=== PATIENT | female | born 1945 | race Caucasian/White ===

== ENCOUNTER 2017-01-25 05:31 | Observation (INO) | payer BC ==
[2017-01-17 12:26] VITALS: BMI 35.0
--- NOTE | 2017-01-17 13:02 | PAT Medication Instructions ---
Service Date Jan 17, 2017. Current Home Medication List Ascorbic Acid (Vitamin C), 60 MG PO QAM Aspirin (Aspirin Chewable), 81 MG PO QAM Calcium (Calcium) Calcium Carbonate (Calcium), 750 MG PO QAM Cholecalciferol (Vitamin D3), 1 CAP PO QAM Diclofenac (Voltaren), 75 MG PO TID Ciunjxtdpiz-Mgxtxcnpgpt-Rvv C- (Glucosamine Chondroitin), 1 TAB PO QAM Glyburide (Micronase), 2.5 MG PO HS Glyburide (Glyburide), 2.5 MG PO UD PRN for PRN Metformin Hcl (Glucophage), 500 MG PO BID Vitamin B Cmplx/Vitc/Folic Ac (Nephrocaps), 1 CAP PO QAM Vitamin E (Vitamin E), 1 TAB PO QAM Medication Instructions For Your Scheduled Surgery - Held per surgeon's instructions: Aspirin (Aspirin Chewable), 81 MG PO QAM - Hold the following medications as of 01/17/17: Xohxsvtdaqx-Zitbblaexsy-Ttq C- (Glucosamine Chondroitin), 1 TAB PO QAM Vitamin E (Vitamin E), 1 TAB PO QAM - Hold the following medications 48 hours prior to surgery: Metformin Hcl (Glucophage), 500 MG PO BID - Hold the following medications the morning of surgery: Glyburide (Glyburide), 2.5 MG PO UD PRN for PRN Ascorbic Acid (Vitamin C), 60 MG PO QAM Calcium Carbonate (Calcium), 750 MG PO QAM Cholecalciferol (Vitamin D3), 1 CAP PO QAM Diclofenac (Voltaren), 75 MG PO TID (otherwise okay to continue per surgeon) Vitamin B Cmplx/Vitc/Folic Ac (Nephrocaps), 1 CAP PO QAM Calcium (Calcium) - Take the following medications as scheduled the night before surgery: Glyburide (Micronase), 2.5 MG PO HS Nothing to eat or drink after midnight If you have any questions please call us at [phone] or [phone] or [phone]
[2017-01-17 13:11] LABS: BUN/CREATININE RATIO 20.8 (10-20); CALCIUM 9.3 mg/dl (8.5-10.1); CREATININE 0.85 mg/dl (0.60-1.20); POTASSIUM 3.7 mmol/L (3.5-5.1)
[2017-01-17 13:53] LABS: BASO % 0.9 %; BASO ABS # 0.06 K/uL (0-0.2); COMPLETE YES; EOS % 4.7 %; HEMATOCRIT 39.5 % (37-47); IG% 0.2 %; LYMPH % 32.2 %; LYMPH ABS # 2.11 K/uL (1.2-3.4); MEAN CELL VOLUME 86.6 fL (80-100); MEAN CORPUSCULAR HEMOGLOBIN 28.7 pg (25-34); MEAN CORPUSCULAR HGB CONC 33.2 g/dl (32-36); MEAN PLATELET VOLUME 10.7 fL (7.4-10.4); MONO % 4.4 %; NEUT % 57.6 %; PLATELET COUNT 202 K/uL (130-400); RED BLOOD COUNT 4.56 M/uL (4.2-5.4); WHITE BLOOD COUNT 6.56 K/uL (4.8-10.8)
[2017-01-25] VITALS (9 sets, daily range): BP systolic 131–165; BP diastolic 75–82; PULSE 60–77; TEMP 36.4–37.1; O2SAT 92–99; Ht 167.6 cm; Wt 97.7 kg
[~2017-01-25] VITALS: Ht 167.6 cm; Wt 97.7 kg
[~2017-01-25 05:31] MED LIST: ASCO100T PO; ASPCH81X PO; B-CO1CAP17 PO; CALC-393 PO; CALC600T37; CHOL2000 PO; DICL-201 PO; GLUC1CAP35 PO; GLYB5TAB8 PO; MCR5 PO; METF500T PO; VITA1TAB4 PO
[2017-01-25] MEDS ORDERED: CEFAZOLIN 2000 MG/60 ML D5W IV SCH (06:00)
[2017-01-25] MEDS ORDERED: ENOXAPARIN 40 MG/0.4 ML SYR SQ SCH (06:00)
[2017-01-25] MEDS ORDERED: LACTATED RINGER'S 1000ML 1,000 ML IV SCH (06:00)
[2017-01-25] MEDS ORDERED: CLINDAMYCIN 600 MG/54 ML D5W IV ONE ×2 (06:45→11:56)
[2017-01-25] MEDS ORDERED: NURSING VERBAL MED ORDER ONE (06:45)
[2017-01-25] MEDS ORDERED: LIDOCAINE/EPINEPHRINE 1% 20 ML VIAL ONE (06:58)
[2017-01-25] MEDS ORDERED: BUPIVACAINE 0.25% 30 ML VIAL ONE (06:59)
--- NOTE | 2017-01-25 07:00 | History & Physical Bridge Note ---
H&P Re-Evaluation Bridge Note: I have examined the patient, reviewed the History & Physical and in the interval since the performance of the History & Physical I have noted the following changes of clinical significance: No changes noted
[2017-01-25] MEDS ORDERED: PROPOFOL IV EMULSION 10 MG/ML 20 ML VIAL IV ONE (07:04)
[2017-01-25] MEDS ORDERED: MIDAZOLAM HCL 1 MG/ML 2ML VIAL ONE (07:04)
[2017-01-25] MEDS ORDERED: LIDOCAINE HCL 2% 2 ML VIAL (20MG/ML) ONE (07:04)
[2017-01-25] MEDS ORDERED: FENTANYL CITRATE INJ 50 MCG/1 ML 2 ML VIAL ONE ×2 (07:04→07:44)
[2017-01-25] MEDS ORDERED: ROCURONIUM BROMIDE 10 MG/ML 5 ML VIAL IV ONE (07:04)
[2017-01-25] MEDS ORDERED: HYDROmorphone INJ 2 MG/ML SYR/VIAL ONE (08:19)
[2017-01-25] MEDS ORDERED: FLUCONAZOLE 200MG / NSS IV ONE (08:30)
[2017-01-25] MEDS ORDERED: ACETAMINOPHEN 1000 MG/100 ML IV IV ONE (09:47)
[2017-01-25] MEDS ORDERED: NEOSTIGMINE METHYLSULFATE 5 MG/5 ML SYR ONE (09:55)
[2017-01-25] MEDS ORDERED: EpHEDrine SULFATE 50MG/5ML SYR ONE (09:55)
[2017-01-25] MEDS ORDERED: ONDANSETRON INJ 2 MG/ML 2 ML VIAL ONE ×2 (09:55)
[2017-01-25] MEDS ORDERED: GLYCOPYRROLATE INJ 0.2 MG/ML VIAL ONE (09:55)
[2017-01-25] MEDS ORDERED: DEXAMETHASONE SOD INJ 4 MG/ML VIAL ONE (09:55)
--- NOTE | 2017-01-25 11:56 | [facility] Post Operative Brief Note ---
Immediate Operative Summary Operative Date Jan 25, 2017. Pre-Operative Diagnosis Bilateral Symptomatic Macromastia Post-Operative Diagnosis Same as preoperative Procedure(s) Performed Bilateral Breast Reduction Surgeon Dr. Mignon Dumont Case Mgr Surgeon(s) None per surgeon Estimated Blood Loss 50ml Findings fibrocystic change; NACs pink and viable at close of case Specimens A.) Left Breast Tissue, 758 grams B.) Right Breast Tissue, 692 grams Drains IRASEMA x2 Anesthesia general Complication(s) None Disposition Recovery Room / PACU
[2017-01-25] MEDS ORDERED: OXAZEPAM 10MG CAP PO PRN (12:00)
[2017-01-25] MEDS ORDERED: MoRPHine SULFATE 4 MG/ML 1 ML CARP\\VIAL IV PRN ×2 (12:00)
[2017-01-25] MEDS ORDERED: ONDANSETRON INJ 2 MG/ML 2 ML VIAL IV PRN ×2 (12:00→12:15)
[2017-01-25] MEDS ORDERED: PROMETHAZINE HCL INJ 12.5 MG in SODIUM CHLORIDE 0.9% 50ML 50 ML IV PRN ×2 (12:00→12:15)
[2017-01-25] MEDS ORDERED: DiphenhydrAMINE HCL 50 MG/ML VIAL IV PRN (12:00)
[2017-01-25] MEDS ORDERED: ACETAMINOPHEN 325 MG TAB PO PRN (12:00)
[2017-01-25] MEDS ORDERED: OXYCODONE/ACETAMINOPHEN 5-325 TAB PO PRN ×2 (12:00)
[2017-01-25] MEDS ORDERED: MoRPHine SULFATE 2 MG/ML CARP IV PRN (12:00)
[2017-01-25] MEDS ORDERED: EpHEDrine SULFATE INJ 50 MG/ML AMP IV PRN (12:15)
[2017-01-25] MEDS ORDERED: NALOXONE HCL 0.4 MG/1 ML VIAL/CARP IV PRN (12:15)
[2017-01-25] MEDS ORDERED: ATROPINE SULFATE 0.1 MG/ML 5ML SYR IV PRN (12:15)
[2017-01-25] MEDS ORDERED: FLUMAZENIL 0.1 MG/1 ML 10 ML VIAL IV PRN (12:15)
[2017-01-25] MEDS ORDERED: LABETALOL HCL IV 5 MG/ML 20ML IV PRN (12:15)
[2017-01-25] MEDS ORDERED: HYDROmorphone INJ 1 MG/ML SYR ONE (12:24)
[2017-01-25] MEDS: HYDROmorphone INJ 1 MG/ML SYR IV PRN ×4 (12:38→13:00)
--- NOTE | 2017-01-25 14:25 | Anesthesiology Progress Note ---
Anesthesia Post Op Note Date & Time Jan 25, 2017 at 14:25 Vital Signs Pain Intensity: 4 Vital Signs Past 12 Hours Date Time Temp Pulse Resp B/P (MAP) Pulse Ox O2 Delivery O2 Flow Rate FiO2 01/25/17 13:23 64 15 01/25/17 13:23 63 15 100 01/25/17 13:21 130/74 01/25/17 13:18 55 16 100 01/25/17 13:18 56 16 01/25/17 13:16 143/72 01/25/17 13:14 36.5 01/25/17 13:13 63 22 100 01/25/17 13:13 63 22 01/25/17 13:12 64 17 100 01/25/17 13:12 63 17 01/25/17 13:11 147/77 01/25/17 13:07 62 16 100 01/25/17 13:07 62 16 01/25/17 13:06 140/86 01/25/17 13:02 59 16 01/25/17 13:02 59 16 100 01/25/17 13:01 144/74 01/25/17 12:59 65 16 99 01/25/17 12:59 65 16 01/25/17 12:56 136/80 01/25/17 12:54 67 21 01/25/17 12:54 67 21 98 01/25/17 12:51 135/92 01/25/17 12:49 66 16 01/25/17 12:49 66 16 97 01/25/17 12:48 61 16 96 01/25/17 12:48 61 16 01/25/17 12:46 142/71 01/25/17 12:43 71 18 01/25/17 12:43 68 18 97 01/25/17 12:41 141/62 01/25/17 12:38 70 14 100 01/25/17 12:38 70 14 01/25/17 12:36 130/60 01/25/17 12:33 66 16 01/25/17 12:33 66 16 100 01/25/17 12:32 69 13 01/25/17 12:32 68 13 100 01/25/17 12:31 131/69 01/25/17 12:27 71 17 01/25/17 12:27 71 17 100 01/25/17 12:26 139/71 01/25/17 12:22 73 17 01/25/17 12:22 71 17 100 01/25/17 12:21 140/71 01/25/17 12:17 74 9 01/25/17 12:17 74 9 99 01/25/17 12:16 137/65 01/25/17 12:13 134/87 01/25/17 12:12 36.1 75 14 134/87 98 Oxymask 10 01/25/17 05:55 36.7 77 18 165/77 (106) 97 Room Air Notes Mental Status: alert / awake / arousable, participated in evaluation Pt Amnestic to Procedure: Yes Nausea / Vomiting: adequately controlled Pain: adequately controlled Airway Patency, RR, SpO2: stable & adequate BP & HR: stable & adequate Hydration State: stable & adequate Anesthetic Complications: no major complications apparent
[2017-01-25] MEDS ORDERED: D5W AND 1/2NSS + 20MEQ KCL 1,000 ML IV SCH (14:30)
[2017-01-25] MEDS ORDERED: IV FLUIDS COMPLETED PRN (14:45)
[2017-01-25 15:06] LABS: HEMATOCRIT 40.3 % (37-47); MEAN CELL VOLUME 86.9 fL (80-100); MEAN CORPUSCULAR HEMOGLOBIN 29.3 pg (25-34); MEAN CORPUSCULAR HGB CONC 33.7 g/dl (32-36); MEAN PLATELET VOLUME 10.3 fL (7.4-10.4); PLATELET COUNT 190 K/uL (130-400); RED BLOOD COUNT 4.64 M/uL (4.2-5.4); WHITE BLOOD COUNT 11.28 K/uL (4.8-10.8)
[2017-01-25 15:25] LABS: PROTHROMBIN TIME (PATIENT) 10.7 SECONDS (9.0-12.0)
[2017-01-25 15:27] LABS: CREATININE 0.82 mg/dl (0.60-1.20)
[2017-01-25] MEDS ORDERED: PNEUMOCOCCAL POLYSACCHARIDES 25 MCG/0.5 ML VIAL/SYR IM. ONE (16:00)
[2017-01-25] MEDS ORDERED: PNEUMOCOCCAL ADMINISTRATION CHARGE ONE (16:00)
--- NOTE | 2017-01-25 17:16 | Progress Note ---
Progress Note Date of Service Jan 25, 2017. Progress Note Post op check Doing well overall. Some pain at right drain site afebrile VSS dressings c/d/i bilateral NACs pink, viable and sensate JPs serosanguinous 30 cc right/20 cc left drain sites benign, tube repositioned for patient comfort Stable post op Pain meds addressed continue NAC checks
[2017-01-25] MEDS: OXYCODONE HCL IR 5 MG TAB (IMMEDIATE RELEASE) PO PRN (18:25)
[2017-01-25] MEDS: DICLOFENAC SOD EC 75 MG TABCR PO SCH (21:39)
[2017-01-25] MEDS ORDERED: CLINDAMYCIN 600 MG/54 ML D5W IV SCH (22:00)
[2017-01-25] MEDS ORDERED: CLINDAMYCIN IV 600 MG in DEXTROSE 5% 50ML 50 ML IV ONE (22:00)
[2017-01-26] MEDS: OXYCODONE HCL IR 5 MG TAB (IMMEDIATE RELEASE) PO PRN ×2 (00:33→08:28)
[2017-01-26 03:25] VITALS: BP 113/64; PULSE 69; TEMP 36.9; O2SAT 94
--- NOTE | 2017-01-26 06:30 | Progress Note ---
Progress Note Date of Service Jan 26, 2017. Progress Note POD#1 Doing well. Pain controlled. Low O2 sat overnight, improved and now off oxygen afebrile VSS dressings c/d/i JPs since OR, serosanguinous bilateral NACs pink and viable plan for discharge home today with office follow up tomorrow pain meds provided in office instructions given
--- NOTE | 2017-01-26 06:33 | Discharge Instructions ---
Discharge Instructions Date of Service Jan 26, 2017. Admission Reason for Admission: Bilateral Symptomatic Macromastia Discharge Discharge Diagnosis / Problem: macromastia Discharge Goals Goal(s): Decrease discomfort, Improve function Activity Recommendations Activity Limitations: per Instructions/Follow-up section . Instructions / Follow-Up Instructions / Follow-Up ACTIVITY RECOMMENDATIONS: __Normal activities _x_No bending, lifting or straining __No driving _x_Driving allowed when you are off pain medications x__Walking permitted __You should have help at home for ___ days DRESSINGS: __No dressings required _x_Keep dressings dry/in place until first office visit __Remove dressings ___ and leave dressings off __Apply ice ___ days __Remove dressings and reapply garment __Apply antibiotic ointment (Bacitracin, Neosporin, etc) to wounds 3-4 times/ day for 10 days BATHING: _x_Keep dressings dry _x_Sponge bathing permitted __Showering permitted _x_No swimming, hot tubs or soaking in a tub MEDICATIONS: Resume previous medications unless instructed otherwise by your surgeon. _x_Do not use aspirin, Motrin, Advil or Ibuprofen as these may promote bleeding. Please use Tylenol. _x_Prescription(s) provided: oxycodone as prescribed in office OTHER INSTRUCTIONS: __Record drain output 2-3 times per day SPECIAL CARE INSTRUCTIONS: * It is normal to have a mild fever after surgery. If your temperature is higher than 101.5 degrees F, please call the office at [phone]. * Constipation is a typical side effect of pain medication. An over-the- counter stool softener will help relieve this. * Leaking around surgical drains may occur and should not cause concern. Sometimes these drains become clogged. If this happens, remove the bulb and milk the clot out of the tube, then replace the bulb. * Drainage from wounds after liposuction is normal and should be expected. Garments will become soiled. You should protect furniture and bedding. This drainage should mostly subside within 2-3 days. Leave garments in place unless instructed to remove them. * If you have unusual drainage from a wound or are concerned you have an infection or have any questions or concerns, please call the office at [phone]. FOLLOW UP VISIT: If not already scheduled, please call the office, , when you return home after surgery to schedule an appointment to be seen in _2__ days. Current Hospital Diet Patient's current hospital diet: Diabetes Type 2 Diet Discharge Diet Recommended Diet: Diabetes Type 2 Diet Procedures Procedures Performed: Bilateral Breast Reduction Pending Studies Studies pending at discharge: no Medical Emergencies . Who to Call and When: Medical Emergencies: If at any time you feel your situation is an emergency, please call 911 immediately. . Non-Emergent Contact Non-Emergency issues call your: Primary Care Provider, Surgeon Call Non-Emergent contact if: temperature is above 101.5, your pain is not controlled, wound has increased drainage, wound has increased redness, wound has increased pain, you have any medication questions . "Provider Documentation" section prepared by Mignon Dumont. . VTE Core Measure Inpt VTE Proph given/why not?: Enoxaparin (Lovenox) [place] Drug Monitoring Program Search Results: patient reviewed within database, no issues identified ( documented in office chart)
[2017-01-26 07:44] VITALS: BP 130/60; PULSE 62; TEMP 36.9; O2SAT 94
[2017-01-26] MEDS: DICLOFENAC SOD EC 75 MG TABCR PO SCH (08:28)
[2017-01-26] MEDS ORDERED: MULTIVITAMIN TAB PO SCH (09:00)
[2017-01-26] MEDS ORDERED: NEPHROCAPS PO SCH (09:00)
[2017-01-26] MEDS ORDERED: ENOXAPARIN 40 MG/0.4 ML SYR SQ SCH (09:00)
[2017-01-26 09:58] VITALS: BP 130/60; PULSE 62; TEMP 36.9; O2SAT 94
--- NOTE | 2017-01-26 11:13 | Anesthesiology Progress Note ---
Anesthesia Post Op Note Date & Time Jan 26, 2017 at 11:11 Vital Signs Pain Intensity: 6.5 Vital Signs Past 12 Hours Date Time Temp Pulse Resp B/P (MAP) Pulse Ox O2 Delivery O2 Flow Rate FiO2 01/26/17 09:58 36.9 62 16 94 Room Air 01/26/17 07:44 36.9 62 16 130/60 (83) 94 Room Air 01/26/17 03:25 36.9 69 17 113/64 (80) 94 Nasal Cannula 2.0 01/25/17 23:35 Nasal Cannula 2.0 Notes Mental Status: alert / awake / arousable, participated in evaluation Pt Amnestic to Procedure: Yes Nausea / Vomiting: adequately controlled Pain: adequately controlled Airway Patency, RR, SpO2: stable & adequate BP & HR: stable & adequate Hydration State: stable & adequate Anesthetic Complications: no major complications apparent pt c/o numbness in right thumb. Surgeon and anesthesiologist aware.
--- NOTE | 2017-01-26 20:01 | OPERATIVE REPORT ---
DATE OF OPERATION: 01/26/2017 PREOPERATIVE DIAGNOSIS: Bilateral symptomatic macromastia. POSTOPERATIVE DIAGNOSIS: Same. PROCEDURE: Bilateral reduction mammoplasty. SURGEON: Dr. Mignon Dumont. PINNER PRINTED CIRCUIT BOARDS: Vikki Tovar MS4. ANESTHESIA: General. COMPLICATIONS: None. INDICATION FOR THE PROCEDURE: The patient is a 71-year-old female who presented to my office with complaints of back, neck and shoulder pain related to her large breasts which failed to respond to conservative therapy. After discussion, she elected to proceed with bilateral reduction mammoplasty. BRIEF DESCRIPTION OF THE PROCEDURE: The risks, benefits and alternatives of the procedure were explained to the patient who agreed and signed consent. She was identified and marked in the preoperative holding area. She was brought to the operating room where she was positioned supine and placed under general anesthesia without incident. Surgical site was prepped and draped sterilely. A time-out procedure was performed. I began with the left side which was the larger of the 2 breasts. Markings were reassessed and an 8 cm pedicle was marked. 1% lidocaine with epinephrine was used to anesthetize the planned incisions. A 38 mm cookie cutter was used to circumscribe the nipple-areolar complex. The previously marked 8 cm pedicle was incised using a 15 blade scalpel and deepithelialized. I began with the medial dissection of the pedicle using electrocautery. Cautery was used to incise through dermis and breast parenchyma down to the chest wall, taking care not to undermine the pedicle during dissection. A similar procedure was undertaken on the lateral aspect of the pedicle again taking care not to undermine. Lastly, the pedicle was dissected out superiorly using electrocautery. This was carried down to the chest wall. I then began excision of the medial breast tissue followed by lateral aspect of the breast tissue and surrounding the keyhole incision. A 15 blade scalpel was used to make the inframammary fold incision and electrocautery was used to deepen the incision through dermis and breast parenchyma. Dissection was then carried superiorly to the level of the superior incision. Superior incision was then incised using 15 blade scalpel and again dissected using electrocautery. This was undertaken laterally and then around the keyhole portion of the incision. Care was taken to leave some fat on the lateral pectoralis fascia in order to protect the T4 intercostal nerve. Hemostasis was achieved with electrocautery. Specimen was removed in its entirety and passed off for weighing. Additional resection from underneath the flap was undertaken until the maximal resection weight of 758 grams was achieved and there was uniform pedicle and flap. The wound was irrigated with normal saline. Hemostasis was achieved with electrocautery. 0.25% Marcaine plain was used to anesthetize the incisions as well as the pectoralis fascia. A 15 Occitan Jam drain brought out through a separate stab incision. The nipple-areolar complex was advanced into the keyhole using 2-0 Vicryl deep dermal suture. The wound was closed first in a lateral to mid breast direction using 2-0 Vicryl deep dermals and then medial to mid breast using 2-0 Vicryl deep dermals. The vertical limb was also approximated using 2-0 Vicryl deep dermal sutures. The nipple-areolar complex was inset using 2-0 Vicryl deep dermals. Next, the superficial dermal layer was closed using 2-0 PDO running Quill suture along the inframammary fold and 3-0 PDS interrupted dermal sutures for the vertical limb and nipple-areolar complex closures. Lastly, 3-0 Monocryl running subcuticular suture was placed. A similar procedure was undertaken on the smaller right side with maximal resection weight of 692 grams. At the end of the case, both nipple-areolar complexes were pink and viable without evidence of vascular compromise. The breasts appeared reasonably symmetric. Dermabond Prineo was applied along the inframammary fold and vertical limb and Dermabond was placed around the nipple-areolar complex. Following this, dry dressings and a surgical bra were placed. The patient was awakened and transferred to recovery room in satisfactory condition. I attest to the content of the Intraoperative Record and any orders documented therein. Any exceptions are noted below. CATHERINED
--- NOTE | 2017-01-27 00:25 | DISCHARGE SUMMARY ---
ADMISSION DIAGNOSIS: Bilateral symptomatic macromastia. DISCHARGE DIAGNOSIS: Same. SECONDARY DIAGNOSES: Include history of diabetes mellitus and depression with anxiety. PROCEDURES: The patient underwent bilateral reduction mammoplasty via inferior pedicle technique on the day of admission. BRIEF DESCRIPTION OF HOSPITAL COURSE: The patient is a 71-year-old female who presented to my office with complaints of back, neck and shoulder pain related to her large breast. After discussion, she elected to undergo bilateral reduction mammoplasty. This was performed on the day of admission. There were no complications during the surgical procedure and it was tolerated well. She was transferred to the [facility] floor following the procedure, where q. 4-hour interval checks were performed. No evidence of vascular compromise was noted throughout the postoperative course. On the morning of discharge, patient was seen at bedside and drains were removed. Dressings are to remain intact until she follows up in my office on , January 27. Pain medications were provided in the office for her preoperatively. All instructions were provided. SANDRA
== END 2017-01-26 11:35 | disposition home or self-care (01) ==
LOC: C.ACU 05:31 → C.MSN 06:20 → ENRESERV 13:01
PROVIDERS: ADMIT Plastic Surgery; ATTEND Plastic Surgery
DX: N62 Hypertrophy of breast (principal); M54.2 Cervicalgia; M25.511 Pain in right shoulder; M25.512 Pain in left shoulder; R20.0 Anesthesia of skin; Z83.3 Family history of diabetes mellitus; E11.9 Type 2 diabetes mellitus without complications

== ENCOUNTER 2018-06-29 08:52 | Observation (INO) ==
--- NOTE | 2018-06-20 13:44 | Anesthesiology Consultation ---
Date of Service June 20, 2018 Assessment & Plan (1) Encounter for pre-operative examination: Chart Review Chart Review: Acceptable Risk for Surgery and Patient seen in Pre Admission Testing Consults Requested cardiac Patient was seen by cardiology who stated that she is asymptomatic from a cardiac standpoint and has good functional status. [place] that "she can proceed with surgery without further cardiac evaluation." Teaching & Discussion Pre-Anesthesia Teaching/Discussion Notes: Instructed NPO after midnight before surgery, except medications with 15 cc of water. Medication instructions provided according to the PAT guidelines. History Surgery Operation Date: 06/27/18 11:50 Proposed Procedures p Panniculectomy - Mignon Dumont MD Operation Date: 06/29/18 10:35 Proposed Procedures p Panniculectomy - Mignon Dumont MD Height/Weight Height: 5 ft 7 in Weight: 95.9 kg Allergies Allergy/AdvReac Type Severity Reaction Status Date / Time Penicillins Allergy Severe RESP Verified 06/18/18 12:13 DISTRESS SWELLS latex Allergy Intermediate BLISTERS Verified 06/18/18 12:13 celecoxib Allergy Unknown OCULAR Verified 06/18/18 12:13 BLEED Horse/Equine Containing Allergy Unknown UNKNOWN Verified 06/18/18 12:13 Products nickel Allergy Unknown RASH Verified 06/18/18 12:13 acetaminophen AdvReac Mild DELIRIUM Verified 06/18/18 12:13 Medications Home Medications Medication Instructions Recorded Confirmed Last Taken metformin 500 mg PO BID 06/18/18 06/18/18 Unknown glyburide 2.5 mg PO PM 06/20/18 06/20/18 Unknown Past Medical History Medical History Contracture of elbow BILATERAL, 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 Past Surgical History Surgical History History of bilateral breast reduction surgery History of colonoscopy History of esophagogastroduodenoscopy (EGD) History of open reduction and internal fixation (ORIF) procedure ORIF LEFT ARM/WRIST History of surgery MOHS PROCEDURE TO NOSE History of tonsillectomy and adenoidectomy Past Anesthesia History No Hx of Anesthesia Complications and No Family Hx of Anesthesia Complications History of PONV No Motion Sickness Screening History of Motion Sickness: No (Not since childhood) Social History Smoking Status: Never smoker Do You Dip or Chew Tobacco: No Hx Alcohol Use: Yes Alcohol type: wine alcohol intake frequency: holidays/special occasions only Alcohol Intake Frequency Comment: RARE SOCIAL DRINK Hx Substance Use: No substance use type: does not use Exercise / Class Metabolic Activity 1 > 8 Run/Swim/Ski/Tennis ([place]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 Denies CP or SOB. ) Review of Systems Patient denies chest pain, shortness of breath, dyspnea on exertion, reflux, cough, wheezing, palpitations. +joint pain (left knee, hands, neck, back) Physical Exam Vital Signs BP: 129/78 P: 68 R: 16 T: 99.1 SPO2: 100% on RA ENMT Thyromental Distance: > or= 3.5 Finger Breadths (3.5) Mallampati Class: I Neck normal visual inspection and trachea midline; neck extension not limited Respiratory normal respiratory effort Auscultation: lungs clear to auscultation bilaterally Cardiovascular Rate/Rhythm: regular rate and regular rhythm Heart Sounds: no murmur Vessels: no carotid bruit Neurologic moves all extremities Psychiatric Orientation: alert and oriented x 3 Testing Electrocardiogram Date: 06/20/18 Findings: + NSR @ (67) Septal infarct, age undetermined. When compared with ECG of 01/17/17, PACs are no longer present and Septal Infarct is now present. Laboratory Results 06/20/18 14:25 06/20/18 14:25 PT 10.5 Seconds (9.0-12.0) 06/20/18 14:25 INR 1.0 (0.9-1.1) 06/20/18 14:25 APTT 25.3 Seconds (21.0-31.0) 06/20/18 14:25
--- NOTE | 2018-06-20 13:45 | PAT Medication Instructions ---
Medication Instructions Date of Service June 20, 2018 Home Medications metformin 500 mg PO BID glyburide 2.5 mg PO PM DO NOT take the morning of surgery metformin 500 mg PO BID Take morning of surgery NOTHING TO EAT OR DRINK AFTER MIDNIGHT Take evening before surgery metformin 500 mg PO BID glyburide 2.5 mg PO PM Other Notes If you have any questions please call us at [phone] or [phone] or [phone] or [phone]
[2018-06-20 15:53] LABS: Basophils # (auto) 0.08 K/uL (0-0.2); Basophils % (auto) 0.9 %; Eosinophils # (auto) 0.53 K/uL (0-0.5); Hematocrit (blood only) 42.1 % (37-47); Hemoglobin 13.6 g/dL (12.0-16.0); Immature Granulocytes # (auto) 0.02 K/uL (0.00-0.02); Immature Granulocytes % (auto) 0.2 %; Lymphocytes # (auto) 2.34 K/uL (1.2-3.4); Lymphocytes % (auto) 26.7 %; Mean Corpuscular Hgb Conc 32.3 g/dL (32-36); Mean Corpuscular Volume 88.6 fL (80-100); Mean Platelet Volume 11.2 fL (7.4-10.4); Monocytes # (auto) 0.48 K/uL (0.11-0.59); Monocytes % (auto) 5.5 %; Neutrophils # (auto) 5.33 K/uL (1.4-6.5); Neutrophils % (auto) 60.7 %; Platelet Count 228 K/uL (130-400); RDW Coefficient of Variation 13.1 % (11.5-14.5); RDW Standard Deviation 42.6 fL (36.4-46.3); Red Blood Count 4.75 M/uL (4.2-5.4); White Blood Count 8.78 K/uL (4.8-10.8)
[2018-06-20 15:58] LABS: BUN Creatinine Ratio 18.5 (10-20); Calcium 9.4 mg/dl (8.5-10.1); Creatinine Clr Calc Pharmacy 60.5 ml/min; Est GFR (African American) 66.7; Est GFR (Non-African American) 57.5; Potassium 4.2 mmol/L (3.5-5.1)
[2018-06-20 16:04] LABS: Partial Thromboplastin Time 25.3 Seconds (21.0-31.0); Prothrombin Time 10.5 Seconds (9.0-12.0)
[~2018-06-29 08:52] MED LIST changes: -ASCO100T PO; -ASPCH81X PO; -B-CO1CAP17 PO; -CALC-393 PO; -CALC600T37; -CHOL2000 PO; +CLINDAMYCIN PHOS 300 MG/2 ML VIAL IV SCH; -DICL-201 PO; -GLUC1CAP35 PO; -GLYB5TAB8 PO; +LR 15ML/HR IV SCH; -MCR5 PO; -METF500T PO; -VITA1TAB4 PO
[2018-06-29] MEDS ORDERED: DEXAMETHASONE SOD INJ 4 MG/ML VIAL ONE (09:19)
[2018-06-29] MEDS ORDERED: PROPOFOL IV EMULSION 10 MG/ML 20 ML VIAL IV ONE (09:19)
[2018-06-29] MEDS ORDERED: NEOSTIGMINE METHYLSULFATE 5 MG/5 ML SYR ONE (09:19)
[2018-06-29] MEDS ORDERED: ONDANSETRON INJ 2 MG/ML 2 ML VIAL ONE (09:19)
[2018-06-29] MEDS ORDERED: LIDOCAINE HCL 2% 2 ML VIAL/AMP(20MG/ML) INFIL ONE (09:19)
[2018-06-29] MEDS ORDERED: GLYCOPYRROLATE 0.2 MG/ML VIAL ONE ×2 (09:19→11:47)
[2018-06-29] MEDS ORDERED: fentaNYL citrate 100 MCG/2 ML VIAL ONE (09:20)
[2018-06-29] MEDS ORDERED: MIDAZOLAM HCL 1 MG/ML 2ML VIAL ONE (09:20)
[2018-06-29] MEDS ORDERED: ROCURONIUM BROMIDE 10 MG/ML 5 ML VIAL ONE (09:24)
--- NOTE | 2018-06-29 09:57 | History & Physical Bridge Note ---
Date of Service June 29, 2018 History & Physical Bridge Note I have examined the patient, reviewed the History & Physical and in the interval since the performance of the History & Physical I have noted the following changes of clinical significance: no changes noted. Patient has been cleared by cardiology. Consent obtained today.
[2018-06-29] MEDS ORDERED: CLINDAMYCIN 600 MG/54 ML D5W IV ONE (10:14)
[2018-06-29] MEDS ORDERED: ACETAMINOPHEN 1000 MG/100 ML IV IV ONE (10:53)
[2018-06-29] MEDS ORDERED: LIDOCAINE HCL 1% 20 ML VIAL ONE (11:39)
[2018-06-29] MEDS ORDERED: EPINEPHrine INJ 1 MG/ML AMP ONE (11:39)
[2018-06-29] MEDS ORDERED: BUPIVACAINE 0.25% 30 ML VIAL ONE (11:40)
[2018-06-29] MEDS ORDERED: LIDOCAINE/EPINEPHRINE 1% 20 ML VIAL ONE (11:40)
[2018-06-29] MEDS ORDERED: HYDROmorphone INJ 2 MG/ML SYR/VIAL ONE (11:45)
--- NOTE | 2018-06-29 14:14 | Post Operative Brief Note ---
Immediate Post Op Note v1 Date of Surgery June 29, 2018 Pre & Post Diagnosis Operation Date: 06/27/18 11:50 <No data on this case meets the specified criteria> Operation Date: 06/29/18 10:35 Pre-Op Diagnosis: Abdominal Pannus Post-Op Diagnosis: Abdominal Pannus Procedure Operation Date: 06/27/18 11:50 <No data on this case meets the specified criteria> Operation Date: 06/29/18 10:35 Actual Procedures p Panniculectomy(Not Applicable) - Mignon Dumont MD Surgeon Mignon Dumont MD Maintenance Helper Utility Engineer Pari Reed PA-C Estimated Blood Loss 25 Findings Consistent with Post-Op Diagnosis Drains Jam Drain and Marques Catheter
[2018-06-29] MEDS ORDERED: ATROPINE SULFATE 0.1 MG/ML 10ML SYR IV PRN (14:43)
[2018-06-29] MEDS ORDERED: PROMETHAZINE HCL 12.5 MG in SODIUM CHLORIDE 0.9% 50 ML IV PRN ×2 (14:43→16:23)
[2018-06-29] MEDS ORDERED: LABETALOL HCL IV 5 MG/ML 20ML IV PRN (14:43)
[2018-06-29] MEDS ORDERED: FLUMAZENIL 0.1 MG/1 ML 10 ML VIAL IV PRN (14:43)
[2018-06-29] MEDS ORDERED: ePHEDrine sulfate 50 MG/ML AMP IV PRN (14:43)
[2018-06-29] MEDS ORDERED: ONDANSETRON INJ 2 MG/ML 2 ML VIAL IV PRN ×2 (14:43→16:23)
[2018-06-29] MEDS ORDERED: NALOXONE HCL 0.4 MG/1 ML VIAL/CARP IV PRN (14:43)
[2018-06-29] MEDS ORDERED: HYDROmorphone INJ 1 MG/ML SYRINGE ONE (14:55)
[2018-06-29] MEDS: HYDROmorphone INJ 1 MG/ML SYRINGE IV PRN ×8 (14:56→15:31)
--- NOTE | 2018-06-29 15:49 | Anesthesiology Progress Note ---
Date of Service June 29, 2018 Anesthesia Post Procedure Vital Signs Vital Signs: Temp Pulse Pulse Resp BP Pulse Ox 06/29/18 15:39 36.1 C L 63 15 155/77 H 100 06/29/18 15:30 36.1 C L 59 L 18 163/91 H 100 06/29/18 15:20 60 17 186/81 H 100 06/29/18 15:10 62 16 154/83 H 100 06/29/18 15:00 66 12 162/81 H 98 06/29/18 14:50 66 19 153/83 H 100 06/29/18 14:40 68 15 124/53 L 100 06/29/18 14:34 36.6 C 78 14 142/60 H 94 06/29/18 09:35 36.5 C 71 16 173/104 H 99 Pain Intensity Lower Abdomen: Pain Intensity: 3 Notes Mental Status: alert / awake / arousable Patient Amnestic to Procedure: Yes Nausea / Vomiting: adequately controlled Pain: adequately controlled Airway Patency, RR, SpO2: stable & adequate BP & HR: stable & adequate Hydration State: stable & adequate Anesthetic Complications: no major complications apparent
[2018-06-29] MEDS ORDERED: MoRPHine SULFATE 4 MG/ML 1 ML CARP\\VIAL IV PRN ×3 (16:23)
[2018-06-29] MEDS ORDERED: OXYCODONE/ACETAMINOPHEN 5mg/325mg TAB PO PRN ×2 (16:23)
[2018-06-29] MEDS ORDERED: DICLOFENAC SODIUM 25 MG TABDR PO PRN (16:23)
[2018-06-29] MEDS ORDERED: ACETAMINOPHEN 325 MG TAB PO PRN ×2 (16:23)
[2018-06-29] MEDS ORDERED: LORazepam 0.5 MG TAB PO PRN (16:23)
[2018-06-29] MEDS ORDERED: DiphenhydrAMINE HCL 50 MG/ML VIAL IV PRN (16:23)
--- NOTE | 2018-06-29 17:09 | Operative Report ---
Post Operative Report Pre & Post Diagnosis Operation Date: 06/27/18 11:50 <No data on this case meets the specified criteria> Operation Date: 06/29/18 10:35 Pre-Op Diagnosis: Abdominal Pannus Post-Op Diagnosis: Abdominal Pannus Procedure Operation Date: 06/27/18 11:50 <No data on this case meets the specified criteria> Operation Date: 06/29/18 10:35 Actual Procedures Panniculectomy(Not Applicable) - Mignon Dumont MD Surgeon Mignon Dumont MD [employer] Pl Sql Developer Pari Reed PA-C Estimated Blood Loss 25 Findings Consistent with Post-Op Diagnosis Specimens abdominal pannus to pathology Drains IRASEMA x2 Anesthesia Type General Complications none Indications s/p weight loss with overhanging abdominal pannus, intertrigo Description of Procedure Risks, benefits, and alternatives of the procedure were explained to the patient who agreed and signed consent. She was identified and marked in the preoperative holding area. She was brought to the operating room where she was positioned supine and placed under general anesthesia without incident. Marques catheter was placed. Surgical site was prepped and draped sterilely. A time-out procedure was performed. I reassessed my markings which included a lower horizontal abdominal incision with the midportion 7 cm above the vulvar commissure. Incision was marked bilaterally to the ASIS. I began by injecting 1% lidocaine with epinephrine along the planned incision. The lower abdominal incision was made using a 15-blade scalpel to incise epidermis and superficial dermis followed by electrocautery to incise deep dermis, subcutaneous fat, Raad's fascia down to the abdominal wall. Care was taken to bevel superiorly in order to avoid encountering the inguinal region. Electrocautery was used to elevate the anterior abdominal skin flap and achieve hemostasis. Dissection was carried up to the level of the umbilicus in the midline. At this point, a 15-blade scalpel was used to circumscribe the umbilicus. A vertical midline incision was then made from the incision to the umbilicus and divided in the midline using electrocautery. The umbilicus was then dissected out using electrocautery down to abdominal wall. The umbilical stalk appeared viable throughout the procedure. In order to facilitate inset of the umbilicus, dissection was continued for about an additional cm superior to the umbilicus. At this point , the bed was flexed and the mid portion of the superior skin flap was inset above the mons pubis using 2-0 Vicryl suture. Skin flaps were marked for excision. A 15-blade scalpel was used to make these incisions and the incision was deepened through dermis, subcutaneous fat, Raad's fat using electrocautery. Standing cutaneous deformities were marked and excised in similar fashion bilaterally. A 15 Czech Jam drains were placed in the wound bed and brought out through a separate stab incision in the mons pubis. Prior to closure, a total of 10 mL of 0.25% Marcaine plain were injected into the fascia as well as along the incisions. The drains were sutured into place using 3-0 nylon. The umbilicus was brought out through an inverted triangular incision in the abdominal wall. This was performed using a 15-blade scalpel. Wound closure was then begun lateral to medial using 2-0 Vicryl Raad's fascia sutures, 2-0 Vicryl deep dermal sutures, 2-0 PDO running superficial Quill suture, 3-0 Monocryl running subcuticular suture. Umbilicus was brought out through the inverted triangle incision and was sutured into place using 4-0 chromic half buried horizontal mattress sutures. The umbilicus was dressed using Xeroform and the incision was dressed using Dermabond Prineo followed by dry dressings and an abdominal binder. The procedure was tolerated well. The patient was awakened and transferred to recovery in satisfactory condition. EBL 25 cc. Pari Reed was present and scrubbed throughout the entire procedure and was instrumental in providing retraction of the pannus and assisting in simultaneous wound closure. I attest to the content of the Intraoperative Record and any orders documented therein. Any exceptions are noted below.
[2018-06-29] MEDS ORDERED: glyBURIDE 2.5 MG TAB PO SCH (18:00)
[2018-06-29] MEDS: CLINDAMYCIN 600 MG in DEXTROSE 5% 50 ML IV SCH (20:09)
[2018-06-29] MEDS ORDERED: PHARMACY GLYCEMIC MGMT CONSULT PRN (21:06)
[2018-06-29] MEDS ORDERED: LANTUS PER UNIT CHARGE SQ STA (21:12)
[2018-06-29] MEDS ORDERED: ENOXAPARIN INJ 40 MG/0.4 ML SYR SQ SCH (22:00)
[2018-06-29] MEDS: INSULIN ASPART 100 UNITS/ML 3 ML PEN SC SCH (22:48)
[2018-06-30] MEDS ORDERED: INSULIN ASPART 100 UNITS/ML 3 ML PEN SC SCH
[2018-06-30] MEDS: D5W AND 1/2NSS 1,000 ML IV SCH ×2 (02:04→02:19)
[2018-06-30] MEDS: CLINDAMYCIN 600 MG in DEXTROSE 5% 50 ML IV SCH (04:56)
[2018-06-30 07:29] LABS: Estimated Average Glucose 146 mg/dl; Hemoglobin A1C 6.7 % (4.5-5.6)
--- NOTE | 2018-06-30 07:45 | Surgery Progress Note ---
Date of Service June 30, 2018 Assessment & Plan (1) Pannus, abdominal: Looks great. Patient able to be discharged today after she voids. Instructions given. Script given preop. Physical Exam 2 Vital Signs (Past 24 Hours): Last Vital Signs Temp 37.1 C 06/30/18 04:00 Pulse 78 06/30/18 04:00 Resp 18 06/30/18 04:00 BP 143/77 H 06/30/18 04:00 Pulse Ox 90 06/30/18 04:00 Physical Exam: incisions c/d/i, binder intact serosanguinous drainage from JPs
[2018-06-30] MEDS ORDERED: CHOLECALCIFEROL 1,000 UNITS TAB PO SCH (09:00)
[2018-06-30] MEDS ORDERED: MULTIVITAMIN TAB PO SCH (09:00)
[2018-06-30] MEDS: INSULIN ASPART 100 UNITS/ML 3 ML PEN SC SCH ×2 (09:01→12:52)
[2018-06-30] MEDS: LANTUS PER UNIT CHARGE SQ ONE ×2 (09:02→09:14)
--- NOTE | 2018-06-30 10:51 | Anesthesiology Progress Note ---
Date of Service June 30, 2018 Anesthesia Post Procedure Vital Signs Vital Signs: Temp Pulse Pulse Resp BP Pulse Ox 06/30/18 08:06 37.1 C 70 18 148/74 H 93 06/30/18 04:00 37.1 C 78 18 143/77 H 90 06/29/18 23:19 36.9 C 74 18 128/65 94 06/29/18 19:21 36.8 C 78 17 149/70 H 95 06/29/18 18:20 36.7 C 71 20 154/73 H 100 06/29/18 17:43 36.7 C 57 L 18 157/71 H 96 06/29/18 16:50 36.4 C L 70 16 161/72 H 97 06/29/18 16:20 36.6 C 59 L 16 166/74 H 96 06/29/18 16:00 36.2 C L 62 20 176/74 H 99 06/29/18 15:50 56 L 19 177/74 H 96 06/29/18 15:39 36.1 C L 63 15 155/77 H 100 06/29/18 15:30 36.1 C L 59 L 18 163/91 H 100 06/29/18 15:20 60 17 186/81 H 100 06/29/18 15:10 62 16 154/83 H 100 06/29/18 15:00 66 12 162/81 H 98 06/29/18 14:50 66 19 153/83 H 100 06/29/18 14:40 68 15 124/53 L 100 06/29/18 14:34 36.6 C 78 14 142/60 H 94 Pain Intensity Lower Abdomen: Pain Intensity: 4 Notes Mental Status: alert / awake / arousable Patient Amnestic to Procedure: Yes Nausea / Vomiting: adequately controlled Pain: adequately controlled Airway Patency, RR, SpO2: stable & adequate BP & HR: stable & adequate Hydration State: stable & adequate Anesthetic Complications: no major complications apparent and Pt Satisfied with anesthetic care
[2018-06-30] MEDS ORDERED: GLUCAGON FOR INJ 1 MG VIAL IM PRN (12:45)
[2018-06-30] MEDS ORDERED: CARBOHYDRATES FOR HYPOGLYCEMIA PO PRN (12:45)
[2018-06-30] MEDS ORDERED: GLUCOSE 40% GEL 15 GM TUBE PO PRN (12:45)
[2018-06-30] MEDS ORDERED: GLUCOSE 10 TABS/TUBE PO PRN (12:45)
[2018-06-30] MEDS ORDERED: DEXTROSE 50% 50 ML SYRINGE IV PRN (12:45)
--- NOTE | 2018-07-02 11:51 | Discharge Summary ---
Date of Service July 02, 2018 Admission HPI Per Admitting Provider see admission H&P Admission Exam Per Admitting Provider see admission exam Principal Diagnosis abdominal pannus Discharge Exam Constitutional WD/WN, vitals as above Skin + incision (clean, dry, intact) Discharge Data Allergies Allergy/AdvReac Type Severity Reaction Status Date / Time Horse/Equine Containing Allergy Severe Anaphylaxis Verified 06/29/18 10:18 Products Penicillins Allergy Severe Hives Verified 06/29/18 10:07 latex Allergy Intermediate Rash Verified 06/29/18 10:19 celecoxib [From Celebrex] AdvReac Severe Unknown Verified 06/29/18 10:22 Procedures Performed Operation Date: 06/27/18 11:50 <No data on this case meets the specified criteria> Operation Date: 06/29/18 10:35 Actual Procedures p Panniculectomy(Not Applicable) - Mignon Dumont MD Hospital Course (1) Pannus, abdominal: Patient presented to [facility] with history of abdominal pannus. She was taken to the OR and underwent panniculectomy. There were no intraoperative complications. On POD#1, the patient was resting comfortably. Her drains had appropriate bloody and serous output. On exam, her incision appeared CDI. Vital signs were stable. The patient was discharged home. Total Time Total Time Spent Total Time Spent (In Minutes): 10 Total Time Includes: Discharge Planning, Medication Reconciliation and Communication With Other Providers Discharge Plan Discharge Items Patient Disposition: Home - Self-Care Reason For Visit: Abdominal Pannus Discharge Diagnosis: s/p abdominal pannus Discharge Goals: Decrease discomfort and Improve function Activity: As commented below Non-emergency contact: Primary Care Provider and Surgeon Call non-emergency contact if: your pain is not controlled, you have a fever and your wound has increased redness Follow-up/Referrals: Scot Alonzo MD [Primary Care Provider] - Diet: Carb Consistent or DM2 Addtl Provider Instructions: ACTIVITY RECOMMENDATIONS: __Normal activities _x_No bending, lifting or straining __No driving __Driving allowed when you are off pain medications _x_Walking permitted __You should have help at home for ___ days DRESSINGS: __No dressings required __Keep dressings dry/in place until first office visit _x_Remove dressings _on Sunday__ and leave dressings off __Apply ice ___ days __Remove dressings and reapply garment __Apply antibiotic ointment (Bacitracin, Neosporin, etc) to wounds 3-4 times/ day for 10 days BATHING: _x_Keep dressings dry _x_Sponge bathing permitted _x_Showering permitted on Monday after removing dressings _x_No swimming, hot tubs or soaking in a tub MEDICATIONS: Resume previous medications unless instructed otherwise by your surgeon. _x_Do not use aspirin, Motrin, Advil or Ibuprofen as these may promote bleeding. Please use Tylenol. _x_Prescription(s) provided: pain medication was provided at your last office visit OTHER INSTRUCTIONS: _x_Record drain output 2-3 times per day SPECIAL CARE INSTRUCTIONS: * It is normal to have a mild fever after surgery. If your temperature is higher than 101.5 degrees F, please call the office at [phone]. * Constipation is a typical side effect of pain medication. An over-the- counter stool softener will help relieve this. * Leaking around surgical drains may occur and should not cause concern. Sometimes these drains become clogged. If this happens, remove the bulb and milk the clot out of the tube, then replace the bulb. * Drainage from wounds after liposuction is normal and should be expected. Garments will become soiled. You should protect furniture and bedding. This drainage should mostly subside within 2-3 days. Leave garments in place unless instructed to remove them. * If you have unusual drainage from a wound or are concerned you have an infection or have any questions or concerns, please call the office at [phone]. FOLLOW UP VISIT: If not already scheduled, please call the office, , when you return home after surgery to schedule a post-op appointment. Prescriptions: Continue metformin 500 mg Tablet 500 mg PO BID RF: 0 glyburide 2.5 mg Tablet 2.5 mg PO PM RF: 0 acetaminophen [Tylenol] 325 mg Tablet 325 mg PO Q6H PRN (Reason: Pain) RF: 0 diclofenac potassium 50 mg Tablet 50 mg PO BID PRN (Reason: Pain) RF: 0 vitamin B complex [B Complex 1] Tablet 1 tab PO DAILY RF: 0 ascorbic acid (vitamin C) [Vitamin C] 500 mg Tablet 1 tab PO DAILY RF: 0 cholecalciferol (vitamin D3) [Vitamin D3] 1,000 unit Capsule 1,000 unit PO DAILY RF: 0 calcium carbonate [Calcium 500] 500 mg calcium (1,250 mg) Tablet 500 mg PO DAILY RF: 0 Discontinued glucosamine-chondroitin 500-400 mg Tablet 1 tab PO DAILY RF: 0 vitamin E 200 unit Capsule 1 cap PO DAILY RF: 0 Stand-Alone Forms: [facility]/Other Patient Handouts: Tube Aman Morris Drainage Care Discharge Orders: Discharge Order (Routine); Ordered 06/30/18 Ordered By: Mignon Dumont Admission Data Admit Date/Time: 06/29/18 14:59 Attending Provider: Mignon Dumont Admit Provider: Mignon Dumont Primary Care Provider: Scot Alonzo I. Service: Surgical Services Other Interventions: Discharge Summary Assessment (RN) Last Done: 06/30/18 11:41 Pending Studies at Discharge: Yes Studies:: pathology DC Date/Time DO NOT enter until pt leaves facility: 06/30/18 14:00
== END 2018-06-30 14:00 | disposition home or self-care (01) ==
LOC: ASU 08:52 → 3W 08:52